=== PATIENT | female | born 1970 | race African-American/Black ===

== ENCOUNTER 2018-11-12 20:00 | Emergency (ER) | payer BC, MEDICAID ==
[~2018-11-12] VITALS: Ht 172.7 cm; Wt 77.5 kg
[~2018-11-12 20:00] MED LIST: AMLO10TA80 PO; LISI-604 MT; METO-385 MT; OXYC-23 PO; ZOLP10TA6 PO
[2018-11-12] MEDS ORDERED: CLINDAMYCIN 600 MG in DEXTROSE 5% WATER 50 ML IV ONE (23:15)
[2018-11-12] MEDS ORDERED: METHYLPREDNISOLONE SOD SUCC 125 MG/2 ML VIAL IV ONE (23:15)
[2018-11-12] MEDS ORDERED: KETOROLAC 30MG/ML VIAL IV ONE (23:15)
[2018-11-12] MEDS ORDERED: CLINDAMYCIN 600 MG in SODIUM CHLORIDE 0.9% 50 ML IV NR (23:45)
[2018-11-13] MEDS ORDERED: ACETAMINOPHEN WITH CODEINE 300/30MG TABLET PO ONE
[2018-11-13 00:01] VITALS: BP 152/78
== END 2018-11-13 01:56 | disposition home or self-care (01) ==
LOC: ER 20:00
DX: K04.7 Periapical abscess without sinus (principal); I10 Essential (primary) hypertension; F17.210 Nicotine dependence, cigarettes, uncomplicated; Z71.6 Tobacco abuse counseling; M79.674 Pain in right toe(s)
CPT/HCPCS: 96365; 96375; 99283; 99406; J1885; J2930; J3490; J7060

== ENCOUNTER 2019-03-23 10:38 | Emergency (ER) | payer BC, MEDICAID ==
[~2019-03-23] VITALS: Ht 165.1 cm; Wt 90.0 kg
[2019-03-23] MEDS: SODIUM CHLORIDE 0.9% 1,000 ML IV ONE (11:38)
[2019-03-23 11:54] LABS: BASOPHILS % 0.3 % (0.0-2.0); EOSINOPHILS % 0.7 % (0.0-5.0); HEMATOCRIT. 47.4 % (36.0-48.0); HEMOGLOBIN. 16.1 g/dL (12.0-16.0); MEAN CORPUSCULAR VOLUME 90.9 fL (81.0-99.0); MEAN PLATELET VOLUME 6.7 fl (7.4-10.4); MONOCYTES % 6.1 % (2.0-8.0); NEUTROPHILS % 58.9 % (40.0-76.0); PLATELET 336 x1000/uL (130-400); RED BLOOD CELL COUNT 5.21 mill/uL (4.2-5.4); RED CELL DISTRIBUTION WIDTH 13.1 % (11.6-14.6)
[2019-03-23] MEDS: COLCHICINE 0.6MG TABLET PO ONE (11:57)
[2019-03-23 11:59] LABS: CHLORIDE 107 mEq/L (98-107)
[2019-03-23 12:04] LABS: ETHANOL BLOOD < 10 mg/dL
[2019-03-23] MEDS: KETOROLAC 15MG/ML VIAL IV ONE (13:54)
[2019-03-23 13:57] VITALS: BP 162/102
== END 2019-03-23 13:59 | disposition home or self-care (01) ==
LOC: ER 10:38
DX: M10.071 Idiopathic gout, right ankle and foot (principal); I16.0 Hypertensive urgency; R07.2 Precordial pain
CPT/HCPCS: 36415; 70450; 71045; 80053; 80320; 84484; 85025; 93005; 99284; J7030; Z7610; G0480

== ENCOUNTER 2019-10-02 18:50 | Emergency (ER) | payer BC, MEDICAID ==
[~2019-10-02] VITALS: Ht 170.2 cm; Wt 79.0 kg
[2019-10-02] MEDS ORDERED: HYDROCODONE/ACETAMINOPHEN 5/325MG TABLET PO ONE (20:30)
[2019-10-02] MEDS ORDERED: IBUPROFEN 600MG TABLET PO ONE (20:45)
[2019-10-02] MEDS ORDERED: KETOROLAC 30MG/ML VIAL IM ONE (23:00)
[2019-10-02 23:37] VITALS: BP 188/94
== END 2019-10-02 23:38 | disposition home or self-care (01) ==
LOC: ER 18:50
DX: S16.1XXA Strain of muscle, fascia and tendon at neck level, initial encounter (principal); S70.01XA Contusion of right hip, initial encounter; S40.011A Contusion of right shoulder, initial encounter; W01.0XXA Fall on same level from slipping, tripping and stumbling without subsequent striking against object, initial encounter; Y93.89 Activity, other specified; Y92.89 Other specified places as the place of occurrence of the external cause; Y99.8 Other external cause status; I10 Essential (primary) hypertension; Z98.890 Other specified postprocedural states; Z90.710 Acquired absence of both cervix and uterus; Z79.899 Other long term (current) drug therapy; Z88.6 Allergy status to analgesic agent
CPT/HCPCS: 71045; 72040; 72170; 73030; 96372; 99284; J1885

== ENCOUNTER 2021-01-05 17:22 | Emergency (ER) | payer BC, MEDICAID ==
[~2021-01-05] VITALS: Ht 170.2 cm; Wt 73.0 kg
[~2021-01-05 17:22] MED LIST changes: -LISI-604 MT; +LISI20TA31 MT
[2021-01-05 17:32] VITALS: BP 145/90
[2021-01-05] MEDS ORDERED: DIPHENHYDRAMINE 50MG CAPSULE PO ONE (19:00)
[2021-01-05] MEDS ORDERED: HYDR-3735 MT (19:14)
[2021-01-05] MEDS ORDERED: P50 MT (19:14)
[2021-01-05] MEDS ORDERED: HYDROXYZINE 25MG TABLET PO ONE (19:15)
== END 2021-01-05 20:23 | disposition home or self-care (01) ==
LOC: ER 17:22
DX: L29.8 Other pruritus (principal); T40.2X5A Adverse effect of other opioids, initial encounter; Y92.018 Other place in single-family (private) house as the place of occurrence of the external cause
CPT/HCPCS: 99283; Q0163

== ENCOUNTER 2021-05-14 01:58 | Emergency (ER) | payer MEDICAID, OTHER ==
[~2021-05-14] VITALS: Ht 170.2 cm; Wt 70.0 kg
[~2021-05-14 01:58] MED LIST changes: +HYDR-3735 MT; +P50 MT
[2021-05-14] MEDS ORDERED: IBUPROFEN 800MG TABLET PO ONE (02:45)
[2021-05-14] MEDS ORDERED: IBUP-2030 MT (04:11)
[2021-05-14] MEDS ORDERED: TRAM50TA3 MT (04:11)
[2021-05-14 04:16] VITALS: BP 122/86
== END 2021-05-14 05:00 | disposition home or self-care (01) ==
LOC: ER 01:58
DX: S20.211A Contusion of right front wall of thorax, initial encounter (principal); W18.39XA Other fall on same level, initial encounter; Y93.89 Activity, other specified; Y92.89 Other specified places as the place of occurrence of the external cause; Y99.8 Other external cause status; I10 Essential (primary) hypertension; Z98.890 Other specified postprocedural states; Z90.710 Acquired absence of both cervix and uterus; Z79.899 Other long term (current) drug therapy
CPT/HCPCS: 71101; 99283